=== PATIENT | female | born 1960 | race Caucasian/White ===

== ENCOUNTER → 2016-05-05 | Outpatient (CLI) | payer OTHER ==
[~2016-05-05] MED LIST: BENZ100C PO; [UNRECOGNIZED DRUG - OTHER] PO
== END | disposition home or self-care (01) ==
LOC: CFH 10:14
PROVIDERS: ATTEND Internal Medicine Pulmonary Disease
DX: J84.81 Lymphangioleiomyomatosis (principal); Q89.09 Congenital malformations of spleen; N28.89 Other specified disorders of kidney and ureter; J98.4 Other disorders of lung
CPT/HCPCS: 71250

== ENCOUNTER → 2018-02-12 | Outpatient (CLI) | payer OTHER | END | disposition home or self-care (01) | LOC: CFH 12:12 | PROVIDERS: ATTEND Internal Medicine Critical Care Medicine | DX: J84.81 Lymphangioleiomyomatosis (principal) | CPT/HCPCS: 71250 ==

== ENCOUNTER → 2018-06-17 | Outpatient (CLI) | payer MEDICARE | END | disposition home or self-care (01) | LOC: CFH 06:45 | PROVIDERS: ATTEND Internal Medicine Cardiovascular Disease | DX: I34.0 Nonrheumatic mitral (valve) insufficiency (principal); I51.7 Cardiomegaly | CPT/HCPCS: 78452; 93017; 93306; A9502 ==

== ENCOUNTER 2019-05-04 10:38 | Outpatient (CLI) | payer MEDICARE ==
[~2019-05-04 10:38] MED LIST changes: +METO-93 PO; +TRAM50TA2 PO
== END 2019-05-04 23:59 | disposition home or self-care (01) ==
LOC: CFH 10:38
PROVIDERS: ATTEND Registered Nurse
DX: J84.81 Lymphangioleiomyomatosis (principal); R06.02 Shortness of breath
CPT/HCPCS: 71046

== ENCOUNTER → 2019-06-23 | Outpatient (CLI) | payer MEDICARE | END | disposition home or self-care (01) | LOC: CFH 11:42 | PROVIDERS: ATTEND Registered Nurse | DX: J98.4 Other disorders of lung (principal); M85.88 Other specified disorders of bone density and structure, other site; M47.814 Spondylosis without myelopathy or radiculopathy, thoracic region; R55 Syncope and collapse; I47.1 Supraventricular tachycardia | CPT/HCPCS: 71046; 71250 ==

== ENCOUNTER 2019-07-26 06:04 | Day surgery (SDC) | payer MEDICARE ==
[~2019-07-26] VITALS: Ht 170.2 cm; Wt 63.5 kg
[2019-07-26] MEDS ORDERED: SODIUM CHLORIDE 0.9% 1,000 ML IV SCH (06:31)
[2019-07-26 06:34] VITALS: BP 135/91
[2019-07-26] MEDS ORDERED: ATOR10TA9 PO (06:44)
[2019-07-26] MEDS ORDERED: METO-264 PO (06:46)
[2019-07-26 06:51] LABS: BASOPHILS # (AUTO) 0.12 x10^3/uL (0-0.1); BASOPHILS % (AUTO) 2 % (0-1); EOSINOPHILS # (AUTO) 0.52 x10^3/uL (0-0.4); EOSINOPHILS % (AUTO) 10 % (1-7); LYMPHOCYTES # (AUTO) 1.87 x10^3/uL (1-3.4); LYMPHOCYTES % (AUTO) 35 % (22-44); MD NO; MEAN CORPUSCULAR HEMOGLOBIN 31.5 pg (27.0-34.8); MEAN CORPUSCULAR HGB CONC 34.3 g/dL (32.4-35.8); MEAN CORPUSCULAR VOLUME 91.7 fL (80-100); MEAN PLATELET VOLUME 8.3 fL (7.4-10.4); MONOCYTES # (AUTO) 0.41 x10^3/uL (0.2-0.8); MONOCYTES % (AUTO) 8 % (2-9); NEUTROPHILS % (AUTO) 46 % (42-75); PLATELET COUNT 212 x10^3/uL (130-400); RED BLOOD COUNT 5.26 x10^6/uL (3.82-5.3); RED CELL DISTRIBUTION WIDTH 12.9 % (9.6-15.2)
[2019-07-26 06:57] LABS: ANION GAP 10 mmol/L (5-15); CALCIUM 9.3 mg/dL (8.5-10.1); CHLORIDE 110 mmol/L (98-107); CREATININE 0.91 mg/dL (0.55-1.02)
[2019-07-26] MEDS ORDERED: FENTANYL PF 100 MCG/2ML ONE (08:01)
[2019-07-26] MEDS ORDERED: ADENOSINE 6 MG/2 ML ONE ×2 (08:01→09:12)
[2019-07-26] MEDS ORDERED: LIDOCAINE 2%, 20ML ONE (08:01)
[2019-07-26] MEDS ORDERED: ISOPROTERENOL 0.2MG/ML, 5ML ONE (08:01)
[2019-07-26] MEDS ORDERED: MIDAZOLAM 1 MG/ML, 5ML ONE (08:01)
[2019-07-26] MEDS ORDERED: METOPROLOL SUCCINATE 50 MG TAB.ER.24H PO SCH (10:00)
[2019-07-26] MEDS ORDERED: ACETAMINOPHEN 325 MG TABLET ONE (12:36)
[2019-07-26] MEDS ORDERED: ACETAMINOPHEN 325 MG TABLET PO PRN (13:00)
[2019-07-26] MEDS ORDERED: ATORVASTATIN 10 MG TABLET PO SCH (21:00)
== END 2019-07-26 14:40 | disposition home or self-care (01) ==
LOC: CACL 06:04
PROVIDERS: ATTEND Internal Medicine Cardiovascular Disease
DX: I47.1 Supraventricular tachycardia (principal); I10 Essential (primary) hypertension; E78.5 Hyperlipidemia, unspecified; Z79.899 Other long term (current) drug therapy; Z88.8 Allergy status to other drugs, medicaments and biological substances
CPT/HCPCS: 36415; 80048; 85025; 93613; 93621; 93623; 93653; C1730; C1894; C2630; J0153; J2250; J3010

== ENCOUNTER 2020-10-31 10:50 | Outpatient (CLI) | payer MEDICARE ==
[~2020-10-31 10:50] MED LIST changes: +ATOR10TA9 PO; +METO-264 PO
== END 2020-10-31 23:59 | disposition home or self-care (01) ==
LOC: CVU 10:50
PROVIDERS: ATTEND Internal Medicine Cardiovascular Disease
DX: I11.9 Hypertensive heart disease without heart failure (principal); I47.1 Supraventricular tachycardia; R07.89 Other chest pain
CPT/HCPCS: 93306